=== PATIENT | female | born 1935 | race Hispanic/Latino ===

== ENCOUNTER 2017-06-08 07:44 | Day surgery (SDC) | payer MEDICARE, BC ==
[2017-06-02 11:39] VITALS: BMI 33.1
[2017-06-08 08:51] LABS: BASO # 0.01 K/mm3 (0.0-2.0); BASO % 0.1 % (0.0-3.0); EOS # 0.2 (0.0-0.7); EOS % 2.2 % (1.5-5.0); GRAN # 4.43 (1.4-6.5); GRAN % 64.1 % (50.0-68.0); HEMOGLOBIN 10.4 g/dL (12.0-16.0); LYMPH # 1.7 (1.2-3.4); LYMPH % 24.3 % (22.0-35.0); MEAN CELL VOLUME 99.4 fl (80.0-105.0); MEAN CORPUSCULAR HEMOGLOBIN 31.9 pg (25.0-35.0); MEAN CORPUSCULAR HGB CONC 32.1 g/dl (31.0-37.0); MEAN PLATELET VOLUME 8.9 fl (7.0-11.0); MONO # 0.6 (0.1-0.6); MONO % 9.3 % (1.0-6.0); RBC 3.26 10^6/uL (3.5-6.1); RED CELL DISTRIBUTION WIDTH 14.9 % (11.5-14.5); WHITE BLOOD COUNT 6.9 10^3/ul (4.5-11.0)
[2017-06-08 08:57] LABS: CALCIUM 10.1 mg/dL (8.4-10.5)
[2017-06-08 09:09] LABS: INR 0.96 (0.93-1.08); PARTIAL THROMBOPLASTIN TIME 26.7 Seconds (25.1-36.5); PROTHROMBIN TIME 11.3 SECONDS (9.4-12.5)
[2017-06-08] MEDS ORDERED: Lidocaine 2% Inj (20ml) ONE (09:37)
[2017-06-08] MEDS ORDERED: Midazolam 2 MG/2 ML VIAL ONE (09:38)
[2017-06-08] MEDS ORDERED: Iodixanol 320 MG/ML 200 ML BOTTLE IV ONE (09:39)
[2017-06-08] MEDS ORDERED: Nitroglycerin 50mg in D5W 50 MG/250 ML BOTTLE IV ONE (09:50)
[2017-06-08] MEDS ORDERED: Oxycodone/Acetaminophen 5/325 mg Tab PO PRN (11:03)
[2017-06-08 12:04] VITALS: RESP 16
[2017-06-08 12:30] VITALS: BP 148/68; PULSE 66; TEMP 97.6; O2SAT 96
--- NOTE | 2017-06-08 19:10 | VASCULAR ---
PROCEDURE: 1. Left upper extremity AV fistula angiogram 2. Left subclavian vein angioplasty HISTORY: End-stage renal disease. Malfunctioning AV access left arm swelling. PHYSICIAN(S): Luis Bustos MD. TECHNIQUE: The relative risks and indications of the procedure were explained to the patient and consent obtained. The patient was placed supine on the angiography table and the left arm prepped and draped in usual sterile fashion. Conscious sedation and monitoring provided throughout the procedure by a nurse. Preliminary sonography of the anastomosis demonstrated a widely patent left brachial - cephalic anastomosis. The right arm AV fistula was punctured under ultrasound guidance near the elbow in an antegrade direction with a micropuncture set. A 5 Hebrew catheter was placed. An overlapping right upper extremity AV fistula angiogram was performed. Central venous imaging was obtained. A 7 Hebrew sheath was placed the puncture site. The severe web-like stenosis left subclavian vein was crossed with an angled Glidewire. Exchange is made for 0.035 support wire. The left subclavian vein was dilated with a 14 mm balloon. An excellent angiographic result was obtained. No stents were required. The sheath was removed hemostasis obtained with a purse string suture. The patient tolerated the procedure well. FINDINGS: The left brachial -cephalic anastomosis is widely patent on ultrasound imaging. The left cephalic vein is well developed and patent. 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 Collaterals are present. Left innominate vein and SVC are patent and normal. IMPRESSION: 1. 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 2. Successful left subclavian vein angioplasty with a 14 mm balloon. 3. Well developed left brachial- cephalic fistula.
== END 2017-06-08 12:42 | disposition home or self-care (01) ==
LOC: SDSVAS 07:44
PROVIDERS: ATTEND Radiology Vascular & Interventional Radiology
DX: T82.858A Stenosis of other vascular prosthetic devices, implants and grafts, initial encounter (principal); N18.6 End stage renal disease; I12.0 Hypertensive chronic kidney disease with stage 5 chronic kidney disease or end stage renal disease; Y83.2 Surgical operation with anastomosis, bypass or graft as the cause of abnormal reaction of the patient, or of later complication, without mention of misadventure at the time of the procedure; E11.22 Type 2 diabetes mellitus with diabetic chronic kidney disease
CPT/HCPCS: 36415; 36901; 36907; 80048; 85025; 85610; 85730; 99152; C1725; C1769 ×2; C1894; J1644; J2250; J2405; J3010; J7030; Q9966

== ENCOUNTER 2018-01-16 17:02 | Emergency (ER) | payer MEDICARE, BC ==
[2018-01-16 17:02] VITALS: BMI 33.1
[2018-01-16 17:11] VITALS: RESP 18; TEMP 97.7
--- NOTE | 2018-01-16 17:18 | ED PDOC ---
Arrival/HPI - General Chief Complaint: GI Problem Historian: Patient - History of Present Illness Narrative History of Present Illness (Text): 01/16/18 17:13 82 y/o female, pmh including DM/glaucoma/ESRD (MWF), nkda, c/o constipation x 2- 3 days. Pt. stated that she is chronic dialysis and due for tomorrow, been on chronic miralax/colace with chronic constipation, doesn't help, been constipation x 3 days, eating and drinking well, no nausea or vomiting, no night sweat, no coughing, no fever or chills, no other medical or psychological complaints. Past Medical History - Provider Review Nursing Documentation Reviewed: Yes - Infectious Disease Hx of Infectious Diseases: None - Tetanus Immunization Tetanus Immunization: Unknown - Cardiac Hx Pacemaker: No - Pulmonary Hx Respiratory Disorders: Yes Hx Sleep Apnea: Yes - Neurological Hx Paralysis: No - HEENT Hx HEENT Disorder: Yes Hx Macular Degeneration: Yes - Renal Hx Renal Disorder: Yes (right nephrectomy 6 yr ago) Hx Dialysis: Yes (M-W-F) Hx Kidney Stones: Yes (LITHOTRYPSY) - Endocrine/Metabolic Hx Endocrine Disorders: Yes - Hematological/Oncological Hx Blood Transfusions: No Hx Blood Transfusion Reaction: No - Integumentary Hx Dermatological Disorder: No - Musculoskeletal/Rheumatological Hx Musculoskeletal Disorders: Yes (HX LUMBAR COMPRESSION FX;NASAL & R HUMERUS FX) - Gastrointestinal Hx Gastrointestinal Disorders: Yes (colon resection/PARTIAL COLECTOMY) Other/Comment: CONSTIPATION - Genitourinary/Gynecological Hx Genitourinary Disorders: No - Psychiatric Hx Emotional Abuse: No Hx Physical Abuse: No Hx Substance Use: No - Surgical History Hx Appendectomy: Yes Other/Comment: RIGHT KIDNEY REMOVAL. RIGHT COLECTOMY - Anesthesia Hx Anesthesia Reactions: No Hx Malignant Hyperthermia: No - Suicidal Assessment Feels Threatened In Home Enviroment: No Family/Social History - Physician Review Nursing Documentation Reviewed: Yes Family/Social History: Unknown Family HX Smoking Status: Never Smoked Hx Alcohol Use: No Hx Substance Use: No Hx Substance Use Treatment: No Allergies/Home Meds Allergies/Adverse Reactions: Allergies No Known Allergies Allergy (Verified 01/16/18 17:11) Home Medications: Home Meds Medication Instructions Recorded Confirmed Simvastatin 10 mg PO DAILY 08/29/12 06/08/17 GlipiZIDE [Glucotrol] 5 mg PO DAILY 11/05/15 06/08/17 Lanthanum [Fosrenol] 1,000 mg PO WM 11/05/15 06/08/17 Polyethylene Glycol 3350 [Miralax] 17 gm PO DAILY 11/05/15 06/08/17 Vit A/C/E AC/Znox/Cupric Oxide 1 tab PO BID 11/05/15 06/08/17 [Eye Vitamin-Minerals Tablet] Brinzolamide/Brimonidine Tart 1 drop LEFTEYE BID 06/02/17 06/08/17 [Simbrinza 0.2%-1% 8 ml] Cinacalcet [Sensipar] 60 mg PO Q3XW 06/02/17 06/08/17 Erythromycin 0.5% [Ilytocin] 1 appl LEFTEYE BID 06/02/17 06/08/17 Latanoprost 0.005% Opht [XALATAN 1 drp LEFTEYE DAILY 06/02/17 06/08/17 2.5 Ml] Umeclidinium Brm/Vilanterol Tr 1 inh IH DAILY 06/02/17 06/08/17 [Anoro Ellipta 62.5-25 Mcg INH] Review of Systems - Review of Systems Constitutional: absent: Fatigue, Fevers Eyes: absent: Vision Changes ENT: absent: Hearing Changes Respiratory: absent: SOB, Cough Cardiovascular: absent: Chest Pain Gastrointestinal: Constipation. absent: Abdominal Pain, Diarrhea, Nausea, Vomiting Musculoskeletal: absent: Arthralgias, Back Pain Skin: absent: Rash, Pruritis Neurological: absent: Headache, Dizziness Psychiatric: absent: Anxiety, Depression, Suicidal Ideation Physical Exam Vital Signs Reviewed: Yes Vital Signs Temp Pulse Resp BP Pulse Ox 01/16/18 17:06 97.7 F 88 18 115/73 98 Temperature: Afebrile Blood Pressure: Normal Pulse: Regular Respiratory Rate: Normal Appearance: Positive for: Well-Appearing, Non-Toxic, Comfortable Pain Distress: None Mental Status: Positive for: Alert and Oriented X 3 - Systems Exam Head: Present: Atraumatic, Normocephalic Pupils: Present: PERRL Extroacular Muscles: Present: EOMI Conjunctiva: Present: Normal Mouth: Present: Moist Mucous Membranes Neck: Present: Normal Range of Motion Respiratory/Chest: Present: Clear to Auscultation, Good Air Exchange. No: R espiratory Distress, Accessory Muscle Use Cardiovascular: Present: Regular Rate and Rhythm, Normal S1, S2. No: Murmurs Abdomen: No: Tenderness, Distention, Peritoneal Signs, Rebound, Guarding Back: Present: Normal Inspection Upper Extremity: Present: Normal Inspection. No: Cyanosis, Edema Lower Extremity: Present: Normal Inspection. No: Edema Neurological: Present: GCS=15, CN II-XII Intact, Speech Normal Skin: Present: Warm, Dry, Normal Color. No: Rashes Psychiatric: Present: Alert, Oriented x 3, Normal Insight, Normal Concentration Medical Decision Making ED Course and Treatment: 01/16/18 17:25 -Abdominal xray -Glycerin 01/16/18 18:54 -Abdominal xray show: Nonspecific nonobstructive bowel gas pattern. 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 agreed on it. Will give half of fleet. 01/16/18 19:46 -Pt. had a bowel movement, feeling much better, no watery stool, eating and drinking well, explained to her that constipation would likely be chronic due to she is dialysis with water restriction and diet restriction, advised to see continuous improvement coordinator and pmd for follow up on this problem including GI. -Discharge home with education on follow up with your own pmd and continuous improvement coordinator/GI within 2 days, return to the ER for any new or worsening signs or symptoms including any diarrhea. - RAD Interpretation Radiology Orders: Date of service: 01/16/2018 HISTORY: constipation x 2 days COMPARISON: 06/10/2013 FINDINGS: BOWEL: There is contrast material in the colon and rectum from prior oral ingestion. There is no evidence of bowel dilatation. There are scattered sigmoid diverticula. BONES: S shaped scoliosis in the thoracolumbar spine and multilevel degenerative change OTHER FINDINGS: Surgical clips in the right upper quadrant are related to prior cholecystectomy. IMPRESSION: Nonspecific nonobstructive bowel gas pattern. Technology Lead: Radiologist - PA / APPRENTICE COSMETOLOGIST / Resident Statement MD/DO has reviewed & agrees with the documentation as recorded. Disposition/Present on Arrival - Present on Arrival Any Indicators Present on Arrival: No History of DVT/PE: No History of Uncontrolled Diabetes: No Urinary Catheter: No History of Decub. Ulcer: No History Surgical Site Infection Following: None - Disposition Have Diagnosis and Disposition been Completed?: Yes Diagnosis: Rectal discomfort, Constipation Disposition: HOME/ ROUTINE Disposition Time: 19:48 Patient Plan: Discharge Condition: IMPROVED Discharge Instructions (ExitCare): Constipation in Adults Additional Instructions: -Discharge home with education on follow up with your own pmd and continuous improvement coordinator/G I within 2 days, return to the ER for any new or worsening signs or symptoms including any diarrhea. Referrals: Marci Carbajal MD [Staff Provider] - Follow up with primary Cornelius Cristina MD [Staff Provider] - Follow up with primary Forms: [employer] (Uzbek)
--- NOTE | 2018-01-16 18:37 | RAD ---
Date of service: 01/16/2018 HISTORY: constipation x 2 days COMPARISON: 06/10/2013 FINDINGS: BOWEL: There is contrast material in the colon and rectum from prior oral ingestion. There is no evidence of bowel dilatation. There are scattered sigmoid diverticula. BONES: S shaped scoliosis in the thoracolumbar spine and multilevel degenerative change OTHER FINDINGS: Surgical clips in the right upper quadrant are related to prior cholecystectomy. IMPRESSION: Nonspecific nonobstructive bowel gas pattern.
[2018-01-16 20:03] VITALS: BP 116/71; PULSE 82; O2SAT 99
== END 2018-01-16 20:14 | disposition home or self-care (01) ==
LOC: ED 17:02
DX: K59.00 Constipation, unspecified (principal); K62.89 Other specified diseases of anus and rectum